=== PATIENT | female | born 1960 | race Caucasian/White ===

== ENCOUNTER 2016-12-06 13:39 | Emergency (ER) | payer OTHER ==
[~2016-12-06] VITALS: Ht 167.6 cm; Wt 111.0 kg
[~2016-12-06 13:39] MED LIST: LEVO.05 PO; LORT5TAB PO; MELO15TA2 PO; MUCI600T PO; OMEP20TA39 PO; SIMV10TA PO; TAB-TAB PO; WAL-10TA2 PO; ZITH250T PO
[2016-12-06 13:40] VITALS: BP 197/88; PULSE 106; RESP 18; TEMP 98; O2SAT 96
--- NOTE | 2016-12-06 13:58 | PD ---
HPI Chief Complaint: Fall Time Seen by Provider: 13:58 Travel History International Travel<30 days: No Contact w/Intl Traveler<30days: No Traveled to known affect area: No History of Present Illness HPI 56-year-old female with a history of hyperlipidemia and hypothyroidism is brought to the emergency department by EMS for evaluation of trip and fall. The patient states that she was walking into a store when she accidentally tripped over the curb, states that she did not see it because it was painted the same color as the ground. States that when she fell she caught herself with her hands, landing a little more on the left hand than the right. States that she did hit her face on the ground. Denies loss of consciousness. She does have abrasions to the forehead and a laceration across the bridge of her nose. She complains of pain in her left hand. Denies any other pain. Denies headache, lightheadedness, dizziness, nausea, vomiting, neck pain, back pain, numbness or tingling, weakness. Denies anticoagulation. No other complaints. PFSH Past Medical History High Cholesterol: Yes GERD: Yes Genitourinary: Yes (HX OF KIDNEY FUNCTION PROBLEMS) Thyroid Disease: Yes (Hypo-) Tetanus Vaccination: > 5 Years Influenza Vaccination: Yes ?: Not Menopausal: Yes Past Surgical History Endocrine Surgery: Yes (LEFT KIDNEY SURGERY A CHILD) Social History Alcohol Use: Yes (Rarely) Tobacco Use: No Substance Use: No Allergies-Medications (Allergen,Severity, Reaction): Coded Allergies: Sulfa (Verified Allergy, Severe, "A family allergy", 12/06/16) Reported Meds & Prescriptions Reported Meds & Active Scripts Active Keflex (Cephalexin) 500 Mg Cap 500 Mg PO Q8H 7 Days Reported Omeprazole 20 Mg Tab 20 Mg PO DAILY Levothyroxine (Levothyroxine Sodium) 50 Mcg Tab 50 Mcg PO DAILY Simvastatin 10 Mg Tab 10 Mg PO DAILY Review of Systems Except as stated in HPI: all other systems reviewed are Neg Physical Exam Narrative GENERAL: Well-nourished and well-developed pleasant female patient in no acute distress. SKIN: Abrasion to forehead. 1.5 cm laceration across bridge of nose. HEAD: Normocephalic and atraumatic. No bony point tenderness or crepitus noted throughout the scalp. EYES: No scleral icterus, injection, or drainage. PERRLA. EOMI. No hyphema present. ENT: Swelling noted to the nasal bones with tenderness to palpation. No septal hematoma or hemotympanum noted. Oropharynx is clear and the airway is patent. NECK: Supple and the trachea is midline. No obvious deformities, crepitus, or midline tenderness noted. Full range of motion. CARDIOVASCULAR: Regular rate and rhythm. RESPIRATORY: Breath sounds are equal bilaterally with no accessory muscle use, wheezing, rhonchi, or crackles. GASTROINTESTINAL: Abdomen is soft, non-tender, and nondistended. MUSCULOSKELETAL: Mild swelling of left dorsal hand with tenderness to palpation. No obvious deformities, swelling, cyanosis, or ecchymosis is present throughout the upper and lower extremities. Patient has full range of motion without any signs of neurovascular compromise. Strength 5/5 upper and lower extremities equal bilaterally. BACK: Nontender without any obvious deformities, bony point tenderness, or crepitus noted throughout the thoracic and lumbar vertebrae. NEUROLOGICAL: Awake, alert, and oriented. Normal speech and gait. Cranial nerves are grossly intact. Data Data Last Documented VS Vital Signs Date Time Temp Pulse Resp B/P Pulse Ox O2 Delivery O2 Flow Rate FiO2 12/06/16 13:40 98.0 106 18 197/[address] Brain W/O Iv Contrast(Rout) (12/06/16 13:58) Ct Facial Bones W/O Iv Cont (12/06/16 13:58) Tetanus/Diphtheria Tox Adult (Tetanus/Di (12/06/16 14:00) Hand, Complete ([id number]) (12/06/16 14:10) [facility] Medical Decision Making Medical Screen Exam Complete: Yes Emergency Medical Condition: Yes Differential Diagnosis Contusion versus abrasion versus laceration versus fracture Narrative Course 56-year-old female presents to the emergency room by EMS for evaluation of troponin Romain. Patient is afebrile, vital signs are stable. She did fall onto her face but denies loss of consciousness. She is an abrasion to her forehead and a laceration to the bridge of her nose. Her nose is swollen and tender to palpation, possible fracture. CT of the head and facial bones has been ordered and is pending. X-ray left hand has been ordered and is pending. Left hand x-ray is negative for any acute abnormalities. Head CT is negative for any acute abnormalities. CT of Facial Bones shows mildly comminuted nasal bone fracture. Discussed all findings with the patient. Advised her to follow-up with a Plastic surgeon if she desires revision of nasal fracture. Discussed proper wound care techniques. Patient stable for discharge. Patient verbalizes understanding and agreement with treatment plan. Procedures Procedure Narrative LACERATION LOCATION: Bridge of nose LENGTH: 1.5 cm NUMBER OF STITCHES/ALMA: 4 sutures REPAIR: The area of the laceration was prepped with Betadine and sterilely draped. The laceration was infiltrated with 1% lidocaine. The wound was copiously irrigated and explored without evidence of foreign body, tendon injury or neurovascular injury. The wound was closed using 4. 0 Prolene. This was a single layer repair. Antibiotic ointment and a sterile dressing was applied. The patient was advised to keep the dressing clean and dry. Patient tolerated the procedure well. Diagnosis Primary Impression: Nasal bone fracture Qualified Code: S02.2XXB - Open fracture of nasal bone, initial encounter Additional Impressions: Facial laceration Qualified Code: S01.81XA - Facial laceration, initial encounter Fall Qualified Code: W19.XXXA - Fall, initial encounter Referrals: Primary Care Physician Patient Instructions: Facial Laceration (ED), General Instructions Additional Instructions: Wash gently with soap and water. Apply topical antibiotic ointment. Apply ice 20 minutes on, 20 minutes off to help with swelling. Take [id number] tylenol or ibuprofen as directed on the box as needed for pain. Follow-up with a Plastic Surgeon within the next week if you desire any fracture revision of nose. Return to the ED for any acute worsening of symptoms. Med/Other Pt SpecificInfo: Prescription(s) given Scripts Cephalexin (Keflex)500 Mg Uve348 Mg PO Q8H 7 Days Ref 0 Prov:Dominick Batres MD 12/06/16 Disposition: 01 DISCHARGE HOME Condition: Stable Halie Franklin December 06, 2016 13:58
[2016-12-06] MEDS ORDERED: SIMV10TA PO (13:59)
[2016-12-06] MEDS ORDERED: OMEP20TA PO (13:59)
[2016-12-06] MEDS ORDERED: LEVO50TA4 PO (13:59)
[2016-12-06] MEDS ORDERED: TETANUS/DIPHTHERIA TOXOID ADULT 0.5 ML VIAL IM ONE (14:00)
--- NOTE | 2016-12-06 14:28 | RADHPO ---
EXAM DATE/TIME: 12/06/2016 14:13 [facility] COMPARISON: No previous studies available for comparison. INDICATIONS : Left anterior hand pain near 2nd MCP post fall. MEDICAL HISTORY : Hypercholesterolemia. Gastroesophageal reflux disease. Thyroid disease. SURGICAL HISTORY : Left renal surgery as a child. ENCOUNTER: Initial ACUITY: 1 day PAIN SCORE: 1/10 LOCATION: Left anterior hand FINDINGS: Three view examination of the left hand demonstrates no soft tissue swelling, dislocation, or fractur e. The carpal bones appear intact. The interphalangeal and metacarpophalangeal joints are intact. Bony mineralization is normal. CONCLUSION: Intact left hand. Nestor Barnes MD on December 06, 2016 at 14:26 Board Certified Radiologist. This report was verified electronically.
--- NOTE | 2016-12-06 14:42 | RADHPO ---
EXAM DATE/TIME: 12/06/2016 14:15 [facility] COMPARISON: No previous studies available for comparison. INDICATIONS : Trauma. Fall. Laceration on bridge of nose. RADIATION DOSE: 70.24 CTDIvol (mGy) MEDICAL HISTORY : Hypothyroidism. Gastroesophageal reflux disease. SURGICAL HISTORY : None. ENCOUNTER: Initial ACUITY: 1 day PAIN SCALE: 0/10 LOCATION: cranial TECHNIQUE: Multiple contiguous axial images were obtained of the head. Using automated exposure control and adj ustment of the mA and/or kV according to patient size, radiation dose was kept as low as reasonably a chievable to obtain optimal diagnostic quality images. FINDINGS: CEREBRUM: The ventricles are normal. No evidence of midline shift, mass lesion, hemorrhage or acute infarction . No extra-axial fluid collections are seen. POSTERIOR FOSSA: The cerebellum and brainstem demonstrate no abnormality. The 4th ventricle is midline. The cerebell opontine angle is unremarkable. EXTRACRANIAL: There is soft tissue swelling along the bridge of the nose and along the left frontal scalp. Mild sof t tissue air is present. There is partially visualized air fluid level in the right maxillary sinus. SKULL: The calvaria is intact. No evidence of skull fracture. CONCLUSION: 1. No acute intracranial abnormality is identified. 2. Soft tissue swelling along the bridge of the nose and along the left frontal scalp. Small air-flui d level is visualized in the right maxillary sinus. Nestor Soriano MD on December 06, 2016 at 14:36 Board Certified Radiologist. This report was verified electronically.
--- NOTE | 2016-12-06 15:10 | RADHPO ---
EXAM DATE/TIME: 12/06/2016 14:15 [facility] COMPARISON: No previous studies available for comparison. INDICATIONS : Trauma. Fall. Laceration on bridge of nose. RADIATION DOSE: 34.89 CTDIvol (mGy) MEDICAL HISTORY : Hypertension. Gastroesophageal reflux disease. SURGICAL HISTORY : None. ENCOUNTER: Initial ACUITY: 1 day PAIN SCORE: 7/10 LOCATION: facial TECHNIQUE: Volumetric scanning of the facial bones was performed. Using automated exposure control and adjustme nt of the mA and/or kV according to patient size, radiation dose was kept as low as reasonably achiev able to obtain optimal diagnostic quality images. FINDINGS: ORBITS: The orbital and infraorbital osseous structures are intact. The retroconal structures have a normal configuration. No radiopaque foreign bodies are seen. NASAL BONE: Comminuted but minimally displaced fracturing seen of the tip of the nasion and both sides of the marcel al arch. ZYGOMATIC ARCHES: Symmetric without evidence of fracture. SINUSES: Sinuses are intact. There is small fluid versus blood dependently in the right maxillary air cell. Th ere is a mucous retention cyst in the right maxillary air cells well. NASAL CAVITY: The nasal septum is intact and midline. The lacrimal ducts are intact. SOFT TISSUES: No radiopaque foreign bodies seen. No soft-tissue swelling is seen. INTRACRANIAL: No intracranial air seen. CRIBIFORM PLATE: Grossly intact. CONCLUSION: Mildly comminuted minimally displaced fracturing of the nose. Other facial bones are intact. Nestor Barnes MD on December 06, 2016 at 15:06 Board Certified Radiologist. This report was verified electronically.
[2016-12-06] MEDS ORDERED: CEPH-460 PO (15:13)
== END 2016-12-06 15:20 | disposition home or self-care (01) ==
LOC: PHEFT 13:39
DX: S02.2XXB Fracture of nasal bones, initial encounter for open fracture (principal); S00.81XA Abrasion of other part of head, initial encounter; M79.642 Pain in left hand; E03.9 Hypothyroidism, unspecified; Z23 Encounter for immunization; W18.09XA Striking against other object with subsequent fall, initial encounter; Y93.89 Activity, other specified; Y92.481 Parking lot as the place of occurrence of the external cause
CPT/HCPCS: 12011; 70450; 70486; 73130; 90471; 90714